=== PATIENT | female | born 1980 | race Caucasian/White ===

== ENCOUNTER 2016-11-10 07:32 | Day surgery (SDC) | payer BC ==
[~2016-11-10 07:32] MED LIST: RINGERS SOLUTION,LACTATED 1,000 ML IV PRN; ceFAZolin SODIUM 1 GM VIAL IV PRN
--- OUTSIDE RECORDS SUMMARY | 2016-11-10 07:35 | XMS REPORT | Clinical Summary ---
:1980 Author Organization [facility] [place] [address] Care Team Providers Name Role Phone Unavailable Primary Care Provider Unavailable Source Comments This disclosure is being made pursuant to the [employer] program and maynot contain all information available regarding this patient.[facility] Allergies Active Allergy Reactions Severity Noted Date Comments Bee Venom Anaphylaxis High 07/21/2016 Metoclopramide Hcl Unknown 02/10/2016 Penicillins Unknown 02/10/2016 Current Medications Be aware that medications may not be up to date as of this document. Alwaysverify current medications with the patient. Prescription Sig. Disp. Refills Start Date End Date Status Liraglutide Inject into the Active (VICTOZA SC) skin. metFORMIN Take 850 mg by Active (GLUCOPHAGE) 850 MG mouth daily with tablet breakfast. sertraline (ZOLOFT) Take 25 mg by Active 25 MG tablet mouth daily. Acetaminophen-Codei Take by mouth. Active ne (TYLENOL WITH CODEINE #3 PO) buPROPion Take 75 mg by 04/13/2014 Active (WELLBUTRIN) 75 MG mouth. tablet docusate sodium Take 100 mg by 06/04/2016 Active (COLACE) 100 MG mouth. capsule sertraline (ZOLOFT) Take 25 mg by 12/09/2015 Active 25 MG tablet mouth. metFORMIN Take 850 mg by 09/08/2015 Active (GLUCOPHAGE) 850 MG mouth. tablet diazepam (VALIUM) 5 Take 5 mg by 0 06/04/2016 Active MG tablet mouth as needed. NOVOFINE 30G X 8 MM Inject 1 1 07/07/2016 Active MISC application as directed daily. ondansetron Take 1 tablet by 30 tablet 1 07/31/2016 Active (ZOFRAN-ODT) 4 MG mouth 3 (three) disintegrating times daily as tablet needed for Nausea. topiramate Take 1 tablet by 60 tablet 6 09/22/2016 Active (TOPAMAX) 100 MG mouth 2 (two) tablet times daily. metFORMIN TAKE 1 TABLET BY 30 tablet 2 10/24/2016 Active (GLUCOPHAGE) 850 MG MOUTH DAILY tablet metFORMIN Take 1 tablet by 90 tablet 2 10/25/2016 Active (GLUCOPHAGE) 850 MG mouth daily. tabletIndications:P COS (polycystic ovarian syndrome) metFORMIN TAKE 1 TABLET BY 30 tablet 2 10/24/2016 Discontinued (GLUCOPHAGE) 850 MG MOUTH DAILY 7 tablet Active Problems Not on file Encounters Date Type Specialty Care Team Description 10/25/2016 Refill Family Medicine Sade Rabago, PCOS (polycystic ovarian [employer] syndrome) (Primary Dx) 10/24/2016 Refill Family Medicine Sade Rabago NP 10/19/2016 Refill Family Medicine Sade Rabago NP 10/17/2016 Orders Only Provider, Not In System 09/22/2016 Refill Family Marcela Perez RN from Last 3 Months Immunizations Name Dates Previously Given Next Due Influenza Split 12/23/2013(Deferred: Other - 23 Dec 2013, Experiencing Side Effects) Family History Medical History Relation Name Comments Other Other Family history of Crohn's disease - Father: Noted on Other Other Family history of thyroid disease - Mother,Paternal Grandfather: Noted on Other Other Family history of diabetes mellitus - Maternal Grandmother: Noted on Other Other Family history of kidney disease - Maternal Grandmother: Noted on Other Other Family history of rheumatoid arthritis - Maternal Grandmother: Noted on Relation Name Status Comments Other Other Other Other Other Social History Tobacco Use Types Packs/Day Years Used Date Former Smoker Sex Assigned at Date Recorded Not on file Last Filed Vital Signs Vital Sign Reading Time Taken Blood Pressure 104/62 12/23/2013 8:47 AM CDT Pulse 74 12/23/2013 8:47 AM CDT Temperature - - Respiratory Rate - - Oxygen Saturation - - Inhaled Oxygen Concentration - - Weight 80.7 kg (178 lb) 12/23/2013 8:47 AM CDT Height 162.6 cm (5' 4") 12/23/2013 8:47 AM CDT Body Mass Index 30.55 12/23/2013 8:47 AM CDT Plan of Treatment Health Maintenance Due Date Last Done Comments Tetanus/Pertussis (1 - Tdap) 2001 Pap Smear 10/19/2003 INFLUENZA IMMUNIZATION (#1) 2016 Results MRI SHOULDER W CONTRAST (09/28/2016)from Last 3 Months Insurance Payer Benefit Plan / Group Subscriber ID Type Phone Address [employer] [facility] [id number] [facility] [address] [place] [address] [address] [place] [address] [phone] [address]
--- OUTSIDE RECORDS SUMMARY | 2016-11-10 07:36 | XMS REPORT | Encounter Summary ---
:1980 Author Organization [facility] [place] [address] Care Team Providers Name Role Phone Unavailable Primary Care Provider Unavailable Encounter Details Date Type Department Care Team Description 10/17/2016 Orders Only [facility] Provider, Not In Centralized Scanning System Social History Tobacco Use Types Packs/Day Years Used Date Never Assessed Sex Assigned at Date Recorded Not on file as of this encounter Plan of Treatment Not on fileas of this encounter Results MRI SHOULDER W CONTRAST (09/28/2016)in this encounter Visit Diagnoses Not on filein this encounter
--- OUTSIDE RECORDS SUMMARY | 2016-11-10 07:36 | XMS REPORT | Encounter Summary ---
:1980 Author Organization [facility] [place] [address] Care Team Providers Name Role Phone Unavailable Primary Care Provider Unavailable Reason for Visit Reason Comments Medication Refill Encounter Details Date Type Department Care Team Description 07/31/2016 Refill [facility] Lennie Mccarty, RN [address] [place] [address] [place] [address] Social History Tobacco Use Types Packs/Day Years Used Date Never Assessed Sex Assigned at Date Recorded Not on file as of this encounter Plan of Treatment Not on fileas of this encounter Visit Diagnoses Not on filein this encounter
--- OUTSIDE RECORDS SUMMARY | 2016-11-10 07:36 | XMS REPORT | Encounter Summary ---
:1980 Author Organization [employer] [place] [address] Care Team Providers Name Role Phone Unavailable Primary Care Provider Unavailable Reason for Visit Reason Comments Medication Refill Encounter Details Date Type Department Care Team Description 10/24/2016 Refill [facility] Sade Chou, NURSING CARE ATTENDANT [address] [place] [id number] [place] [address] [phone] Social History Tobacco Use Types Packs/Day Years Used Date Never Assessed Sex Assigned at Date Recorded Not on file as of this encounter Plan of Treatment Not on fileas of this encounter Visit Diagnoses Not on filein this encounter
--- OUTSIDE RECORDS SUMMARY | 2016-11-10 07:36 | XMS REPORT | Encounter Summary ---
:1980 Author Organization [employer] [place] [address] Care Team Providers Name Role Phone Unavailable Primary Care Provider Unavailable Reason for Visit Reason Comments Medication Refill Encounter Details Date Type Department Care Team Description 10/19/2016 Refill [facility] Sade Chou, DIRECTOR MEETINGS [address] [place] [id number] [place] [address] [phone] Social History Tobacco Use Types Packs/Day Years Used Date Never Assessed Sex Assigned at Date Recorded Not on file as of this encounter Plan of Treatment Not on fileas of this encounter Visit Diagnoses Not on filein this encounter
--- OUTSIDE RECORDS SUMMARY | 2016-11-10 07:36 | XMS REPORT | Encounter Summary ---
:1980 Author Organization [employer] [place] [address] Care Team Providers Name Role Phone Unavailable Primary Care Provider Unavailable Reason for Visit Reason Comments Medication Refill Encounter Details Date Type Department Care Team Description 10/25/2016 Refill [facility] Sade Rabago, PCOS ( polycystic [place] [employer] ovarian syndrome) [address] [place] [address] (Primary Dx) [place] [address] [place], [place] [id number] Social History Tobacco Use Types Packs/Day Years Used Date Never Assessed Sex Assigned at Date Recorded Not on file as of this encounter Plan of Treatment Not on fileas of this encounter Visit Diagnoses Diagnosis PCOS (polycystic ovarian syndrome) - Primary Polycystic ovaries in this encounter
--- OUTSIDE RECORDS SUMMARY | 2016-11-10 07:37 | XMS REPORT | Encounter Summary ---
:1980 Author Organization [employer] Address [place] [address] Care Team Providers Name Role Phone Unavailable Primary Care Provider Unavailable Encounter Details Date Type Department Care Team Description 03/30/2016 [facility] Carley Nunes, b2b sales representative [address] [place] [address] [place] [phone] Social History Tobacco Use Types Packs/Day Years Used Date Former Smoker Sex Assigned at Date Recorded Not on file as of this encounter Plan of Treatment Not on fileas of this encounter Visit Diagnoses Not on filein this encounter
--- OUTSIDE RECORDS SUMMARY | 2016-11-10 07:37 | XMS REPORT | Encounter Summary ---
:1980 Author Organization [employer] [place] [address] Care Team Providers Name Role Phone Unavailable Primary Care Provider Unavailable Reason for Visit Reason Comments Letter for School/Work ready for release to return to work Encounter Details Date Type Department Care Team Description 07/21/2016 Office Visit [facility] Sade Rabago History of neck pain Irina Quinonez NP (Primary Dx) [facility] [address] [address] [place], [place] [id number] Social History Tobacco Use Types Packs/Day Years Used Date Never Assessed Sex Assigned at Date Recorded Not on file as of this encounter Instructions Patient Instructions - Sade Rabago NP - 07/21/2016 11:05 AM CDTWill return to full duty no restrictionsin this encounter Progress Notes Sade Rabago NP - 07/21/2016 9:57 AM CDTFormatting of this note may be different from the original. Subjective: Patient ID: Nya Whitten is a 35 y.o. female. HPI Patient's problem list, medications, allergies, past medical, surgical, social and family histories were reviewed and updated as appropriate. Review of Systems Constitutional: Positive for appetite change and fatigue. HENT: Positive for trouble swallowing. Eyes: Negative. Respiratory: Negative. Cardiovascular: Negative. Gastrointestinal: Positive for vomiting. Genitourinary: Negative. Objective: There were no vitals taken for this visit. There is no weight on file to calculate BMI. Physical Exam Constitutional: She is oriented to person, place, and time. She appears well- developed and well-nourished. HENT: Head: Normocephalic and atraumatic. Right Ear: External ear normal. Left Ear: External ear normal. Eyes: Conjunctivae and EOM are normal. Pupils are equal, round, and reactive to light. Neck: There is a 10 cm long scar to the right anterior neck that is present from recent surgery noted problem with swallowing at times able to shrug up and move arms freely without pain Cardiovascular: Normal rate, regular rhythm and normal heart sounds. Pulmonary/Chest: Effort normal and breath sounds normal. Abdominal: Soft. Bowel sounds are normal. Musculoskeletal: Normal range of motion. Neurological: She is alert and oriented to person, place, and time. She has normal reflexes. Psychiatric: See note Assessment/Orders: Diagnoses and all orders for this visit: History of neck pain Comments: patient had sergery with disection and fuse of c3-6 done on 06/02/16 Plan: will return to full duty no restrictions in this encounter Plan of Treatment Not on fileas of this encounter Visit Diagnoses Diagnosis History of neck pain - Primary in this encounter
[2016-11-10] MEDS ORDERED: RINGERS SOLUTION,LACTATED 1,000 ML IV ONE ×2 (11:05→11:15)
--- NOTE | 2016-11-10 11:54 | OR ---
Operative Report - Dictated Report Narrative: Date: 11/10/2016 Physician: Patrick [place] M.D. 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 Whitten Is a 36 year-old female who has been followed in my clinic with complaints of shoulder pain consistent anterior labral pain. Physical exam and diagnostic imaging were consistent with his complaints and concern for anterior labral tear. Conservative measures have failed including, but not limited to, passage of time, activity modification, medications, physical therapy/home exercise program, or injections. The risks, benefits, and alternatives were discussed in clinic. The risks being , bleeding, infection, blood clots, nerve, tendon, ligament, blood vessel injury, persistent pain, arthrosis, stiffness, need for prolonged therapy, need for additional procedures, and persistent symptoms. Consent was obtained in the clinic. Procedure: After marking the correct extremity in the preoperative holding area, a timeout was performed in the operating room. IV antibiotics consisting of Ancef were administered prior to the procedure. A general followed by regional anesthetic was induced by the nurse buttonhole facer per my request. This was in the supine position, then the patient was transitioned to a beachchair position with all bony prominences well-padded, head in neutral, the nonoperative arm well supported, and the legs padded with SCDs in place. The operative shoulder was then prepped and draped in a standard sterile fashion. Preoperatively the shoulder had notable limitation of range of motion. A gentle manipulation under anesthesia had palpable and audible release of soft tissues and notable improvement and then full range of motion, and no gross instability. After marking out the bony landmarks, saline was infused into the joint through a posterior lateral portal site. A enrique incision was made, and the blunt trocar and cannula was introduced into the shoulder joint. An accessory portal was placed in the rotator cuff interval using a spinal needle for guidance. Upon initial evaluation, the biceps tendon showed no tendinopathy or tear. The middle glenohumeral ligament was intact. Subscapularis tendon was unremarkable. The glenoid showed no arthrosis or Bankart. The humeral head articular surface showed no arthrosis or Hill-Sachs. The anterior labrum was torn and mobilized over the anterior aspect of the glenoid neck from approximately the 8:00 to just anterior to the biceps. The superior labrum was unremarkable. The pouch was unremarkable. The posterior labrum was unremarkable. The supraspinatus tendon was unremarkable. The infraspinatus tendon was unremarkable. Utilizing an accessory anterior portal, a Liberator was used in order to mobilize the anterior labrum off the anterior aspect of the glenoid. Next a bur was utilized in order to prepare the bony rim of the glenoid and 3Q fix anchors were placed at the 8:00 9:30 and 11:00 positions. The suture was then passed around the labrum and the labrum was then tied from inferior to superior repairing the labrum to the anterior aspect of the glenoid. Labrum was then probed and was noted be stable and she had full passive range of motion. Once was felt that the labrum was adequately repaired, the wounds were thoroughly irrigated. The portal sites were closed with interrupted nylon. Dressings consisting of Xeroform, 4 x 4, ABD, soft roll, and tape were applied. All sponge, needle, blade, and instrument counts were correct prior to closing the wounds. The patient was awoken and transferred to the postanesthesia care unit in stable condition.
[2016-11-10 12:52] VITALS: BP 99/50
== END 2016-11-10 07:33 | disposition home or self-care (01) ==
LOC: AMB 07:32
PROVIDERS: ATTEND Orthopaedic Surgery
PROC: 0RNKXZZ Release Left Shoulder Joint, External Approach (ICD-10-PCS; 2016-11-10)
PROC: 0MM24ZZ Reattachment of Left Shoulder Bursa and Ligament, Percutaneous Endoscopic Approach (ICD-10-PCS; principal; 2016-11-10 09:00)
DX: S43.492A Other sprain of left shoulder joint, initial encounter (principal); M24.612 Ankylosis, left shoulder; E11.9 Type 2 diabetes mellitus without complications; D64.9 Anemia, unspecified; M79.7 Fibromyalgia; Z87.891 Personal history of nicotine dependence; Z68.20 Body mass index [BMI] 20.0-20.9, adult

== ENCOUNTER 2017-01-03 11:49 | Day surgery (SDC) | payer BC ==
[~2017-01-03 11:49] MED LIST changes: +RINGER'S SOLUTION,LACTATED 1,000 ML IV PRN; -RINGERS SOLUTION,LACTATED 1,000 ML IV PRN; -ceFAZolin SODIUM 1 GM VIAL IV PRN
--- NOTE | 2017-01-03 13:08 | OR ---
Anesthesia Procedure Note - Anesthesia Procedure Note Date of Service: 01/03/17 Narrative: Vital Signs - Last Taken Temp 36.5 C 01/03/17 12:23 Pulse 66 01/03/17 12:23 Resp 16 01/03/17 12:23 BP 94/56 01/03/17 12:23 Pulse Ox 99 01/03/17 12:23 O2 Oxygen Delivery Method Room Air 01/03/17 13:06 ANESTHESIA PROCEDURE NOTE Date of Procedure: 01/03/2017. Time of procedure: 1230. Performed by: Cam Mac CRNA Political Science Faculty Member: None. Preprocedure diagnosis: Left shoulder manipulation under anesthesia. Post procedure diagnosis: Same. Procedure: Left ultrasound guided interacalene nerve block for postoperative analgesia. Indications: The patient is a 36 -year-old female, who is been consult for a preoperative nerve block for postoperative pain control. Findings: See below. Details of the procedure: The tissue over the intended target site was cleansed with ChloraPrep. 1 ml Lidocaine 1 % was infiltrated to the skin and subcutaneous tissue. Under sterile technique and ultrasound guidance a 22-gauge block needle was inserted to the left braclial plexus nerve bundle between the anterior scalene and the middle scalene muscles. 40 mL's of 0.5% bupivacaine plus epinephrine 1 200,000 was injected after negative aspiration for blood. Spread of local anesthetic around the brachial plexus was observed throughout the injection with ultrasound visualization. The needle was removed intact. No complications were noted. The images were retained in the hospital medical database . EBL: Minimal. Fluids: N/A. Specimen: N/A. Post procedure condition: The patient tolerated the procedure well. No complications were noted. Thank you for this consultation. Cam Mac CRNA
[2017-01-03 14:31] VITALS: BP 91/53
== END 2017-01-03 11:50 | disposition home or self-care (01) ==
LOC: AMB 11:49
PROVIDERS: ATTEND Orthopaedic Surgery
PROC: 3E0T3BZ Introduction of Anesthetic Agent into Peripheral Nerves and Plexi, Percutaneous Approach (ICD-10-PCS; 2017-01-03)
PROC: 0RNKXZZ Release Left Shoulder Joint, External Approach (ICD-10-PCS; principal; 2017-01-03 12:30)
DX: M75.02 Adhesive capsulitis of left shoulder (principal); E11.9 Type 2 diabetes mellitus without complications; D64.9 Anemia, unspecified; M79.7 Fibromyalgia; Z87.891 Personal history of nicotine dependence; Z68.20 Body mass index [BMI] 20.0-20.9, adult